=== PATIENT | male | born 1980 | race Two or more races ===

== ENCOUNTER 2023-05-03 20:17 | Emergency (ER) | payer MEDICAID ==
[~2023-05-03] VITALS: Ht 182.9 cm; Wt 96.6 kg
[2023-05-03 21:04] VITALS: BP 123/85; PULSE 77; RESP 17; O2SAT 98
== END 2023-05-04 01:16 | disposition left against medical advice (07) ==
LOC: ER 20:17
DX: S01.25XA Open bite of nose, initial encounter (principal); Z53.21 Procedure and treatment not carried out due to patient leaving prior to being seen by health care provider; W54.0XXA Bitten by dog, initial encounter; Y93.89 Activity, other specified; Y92.89 Other specified places as the place of occurrence of the external cause; Y99.8 Other external cause status